=== PATIENT | female | born 1995 ===

== ENCOUNTER → 2020-11-14 | Outpatient (CLI) | payer OTHER | END | disposition home or self-care (01) | LOC: OFIC 805 12:00 | PROVIDERS: ATTEND Otolaryngology Otology & Neurotology | DX: H60.8X1 Other otitis externa, right ear (principal); H92.01 Otalgia, right ear; H61.21 Impacted cerumen, right ear ==

== ENCOUNTER 2020-11-18 15:06 | Outpatient (CLI) | payer OTHER | END 2020-11-18 15:35 | disposition home or self-care (01) | LOC: OFIC 805 15:06 | PROVIDERS: ATTEND Otolaryngology Otology & Neurotology | DX: H60.8X1 Other otitis externa, right ear (principal); H92.01 Otalgia, right ear; H61.21 Impacted cerumen, right ear ==